=== PATIENT | female | born 1965 | race African-American/Black ===

== ENCOUNTER 2017-11-15 05:30 | Emergency (ER) | payer MEDICAID, OTHER ==
[~2017-11-15] VITALS: Ht 162.6 cm; Wt 55.0 kg
[2017-11-15] MEDS ORDERED: HYDROCODONE/ACETAMINOPHEN 5/325MG TABLET PO ONE (06:30)
[2017-11-15 08:19] VITALS: BP 129/72
== END 2017-11-15 09:19 | disposition home or self-care (01) ==
LOC: ER 05:30
DX: S80.12XA Contusion of left lower leg, initial encounter (principal); S80.11XA Contusion of right lower leg, initial encounter; F17.200 Nicotine dependence, unspecified, uncomplicated; V89.0XXA Person injured in unspecified motor-vehicle accident, nontraffic, initial encounter; Y93.89 Activity, other specified; Y92.89 Other specified places as the place of occurrence of the external cause; Y99.8 Other external cause status
CPT/HCPCS: 73590; 73610; 73630; 99284; Z7610

== ENCOUNTER 2024-05-21 09:26 | Emergency (ER) | payer OTHER ==
[~2024-05-21] VITALS: Ht 167.6 cm; Wt 72.5 kg
[2024-05-21 09:48] VITALS: O2SAT 99
[2024-05-21 10:15] LABS: BASOPHILS % 0.4 % (0.0-2.0); DIFFERENTIAL COMMENT 0; EOSINOPHILS % 0.3 % (0.0-5.0); HEMATOCRIT. 41.7 % (36.0-48.0); HEMOGLOBIN. 13.4 g/dL (12.0-16.0); LYMPHOCYTES % 18.6 % (20.0-50.0); MEAN CORPUSCULAR HEMOGLOBIN 24.7 pg (28.0-32.0); MEAN CORPUSCULAR HGB CONC 32.2 g/dL (31.0-37.0); MEAN CORPUSCULAR VOLUME 76.6 fL (81.0-99.0); MEAN PLATELET VOLUME 8.5 fl (7.4-10.4); MONOCYTES % 8.8 % (2.0-8.0); NEUTROPHILS % 71.9 % (40.0-76.0); PLATELET 302 x1000/uL (130-400); RED BLOOD CELL COUNT 5.44 mill/uL (4.2-5.4); RED CELL DISTRIBUTION WIDTH 15.5 % (11.6-14.6)
[2024-05-21 10:18] LABS: CLARITY URINE CLOUDY (CLEAR); COLOR URINE DARK YELLOW (YELLOW); GLUCOSE URINE NEGATIVE (NEGATIVE); KETONES URINE 1+ (NEGATIVE); LEUKOCYTE ESTERASE URINE 1+ (NEGATIVE); NITRITE URINE NEGATIVE (NEGATIVE); OCCULT BLOOD URINE NEGATIVE (NEGATIVE); PROTEIN URINE 1+ (NEGATIVE); SPECIFIC GRAVITY URINE 1.021 (1.005-1.030)
[2024-05-21 10:22] LABS: CHLORIDE 103 mEq/L (98-107); POTASSIUM 4.4 mEq/L (3.5-5.1); SODIUM 137 mEq/L (136-145)
[2024-05-21 10:23] LABS: CALCIUM 10.3 mg/dL (8.7-10.4); CARBON DIOXIDE 23 mEq/L (21-32)
[2024-05-21 10:28] LABS: GLUCOSE 107 mg/dL (70-105); UREA NITROGEN BLOOD 10 mg/dL (9-23)
[2024-05-21 10:29] LABS: ALANINE AMINOTRANSFERASE 164 IU/L (10-49); ALBUMIN 4.8 g/dL (3.2-4.8); ASPARTATE AMINOTRANSFERASE 148 IU/L (<34); BILIRUBIN DIRECT 0.3 mg/dL (<=3.0)
[2024-05-21 10:30] LABS: BILIRUBIN TOTAL 1.2 mg/dL (0.1-1.0); PROTEIN TOTAL 8.1 g/dL (6.0-8.3)
[2024-05-21 10:31] LABS: HCG SCREEN NEGATIVE
[2024-05-21 10:38] LABS: AMORPHOUS SEDIMENT URINE 1+ /lpf; BACTERIA URINE 1+; RBC URINE NONE SEEN /hpf (0-2); SQUAMOUS EPITHELIAL CELL URINE 2+ /lpf (RARE/1+)
[2024-05-21] MEDS: KETOROLAC 30MG/ML VIAL IV STA (11:03)
[2024-05-21] MEDS: ONDANSETRON HCL 4MG/2ML INJ IV STA (11:03)
[2024-05-21] MEDS ORDERED: IOHEXOL-350 100 ML BOTTLE ONE (12:30)
[2024-05-21] MEDS ORDERED: KETO10TA2 MT (12:56)
[2024-05-21] MEDS ORDERED: ONDA-239 PO (12:57)
[2024-05-21 13:03] VITALS: BP 143/77; PULSE 75; RESP 18; TEMP 36.7; O2SAT 98
== END 2024-05-21 13:06 | disposition home or self-care (01) ==
LOC: ER 09:26
DX: R10.84 Generalized abdominal pain (principal); K57.30 Diverticulosis of large intestine without perforation or abscess without bleeding; K76.0 Fatty (change of) liver, not elsewhere classified; Z79.899 Other long term (current) drug therapy
CPT/HCPCS: 80076; 80048; 81003; 81025; 84703; 83690; 85025; 36415; 74177; 76705; 96374; 96375; 99285; Q9967; J1885; J2405; Z7610